=== PATIENT | female | born 1945 | race Caucasian/White ===

== ENCOUNTER 2022-02-03 15:03 | Outpatient (CLI) | payer MEDICARE | END 2022-02-03 15:04 | disposition home or self-care (01) | LOC: NAV CT 15:03 | PROVIDERS: ATTEND Physician Assistant Surgical | DX: S06.369D Traumatic hemorrhage of cerebrum, unspecified, with loss of consciousness of unspecified duration, subsequent encounter (principal); R22.0 Localized swelling, mass and lump, head | CPT/HCPCS: 70450 ==

== ENCOUNTER 2024-08-10 12:50 | Outpatient (CLI) | payer MEDICARE | END 2024-08-10 12:51 | disposition home or self-care (01) | LOC: NAV RAD 12:50 | PROVIDERS: ATTEND Nurse Practitioner Family | DX: J98.01 Acute bronchospasm (principal) | CPT/HCPCS: 71046 ==